=== PATIENT | male | born 2005 | race Asian ===

== ENCOUNTER 2025-06-15 09:05 | Emergency (ER) | payer OTHER, SELFPAY ==
[2025-06-15 09:07] VITALS: BP 152/96
[2025-06-15 11:13] VITALS: BMI 21.1
[2025-06-15 11:19] VITALS: BP 126/77
--- NOTE | 2025-06-15 11:30 | EDRN ---
Patient with c/o intermittent headaches for the past year and the past week he's had one on a daily basis. Denies any visual changes/numbness and tingling. Patient stated that he gets relief when he takes something for it.
--- NOTE | 2025-06-15 12:15 | ED.GENMED ---
History of Present Illness
General
Chief Complaint: Headache
Source: patient
Exam Limitations: none
Time Seen by Provider: 06/15/25 10:56
Nursing documentation reviewed up to this point in time: agreed with
History of Present Illness
History of Present Illness:
19-year-old male presents to the emergency department with father for evaluation of persistent headache X 1 week. Patient states that he has been having a constant headache for the past 7 days. Symptoms are present when he wakes up every morning
however do respond to Advil. He notes that after Advil wears off headache returns. He describes headache as aching pain which is seem to move around his head both on the left and right side. He also states that he has been congested.
He denies any fever, chills, neck pain. He has not had any nausea, vomiting, visual changes, ataxia, or dysarthria. He denies any sore throat or ear pain. No abdominal pain.
Patient denies any recent trauma. He has had no known sick contacts.
Patient does state that he has had a history of headaches however they have never persisted this long or been as severe.
Review of Systems
Review of Systems
Allergies reviewed?: Yes
All Other Systems: ROS reviewed and negative except as documented in HPI and ROS
Phy Exam
Physical Exam
Physical Exam:
Vitals: Patient's vital signs are stable. Afebrile
General: Patient is well appearing, no acute distress. Nontoxic appearing
Skin: Warm and dry, no rashes or lesions
Head: Normocephalic, atraumatic
Eyes: Sclera nonicteric. Pupils equal round and reactive to light bilaterally. EOMs intact. No nystagmus.
Throat: No tonsillar edema or exudates. Uvula midline. No SYSTEM ANALYST protecting airway
Neck: Normal ROM, no cervical spine tenderness, no meningismus
Cardiac: Regular rate and rhythm, no murmurs.
Pulm: Normal respiratory effort, no wheezes, rales, rhonchi heard on exam
.
Abdomen: No abdominal tenderness.
Extremities: No evidence of cyanosis or edema. Strength 5/5 in bilateral upper and lower extremities.
Neuro: AAOx3. CN II-XII grossly intact. No focal neurologic deficits. Normal speech. Normal finger-nose
Psychiatric: Normal affect.
Course
Orders/Labs/Results
Orders:
Orders
06/15/25 12:07
CT Head W/o Iv Contrast Urgent
Comment:
Reason For Exam: headache x 1 week
0.9% Sodium Chloride 1000 ml [Nss] 1,000 ml IV BOLUS
Ketorolac [Toradol] 15 mg IV NOW STA
06/15/25 12:31
COVID-19 Antigen Urgent
Source: Nasal Swab
Complete Blood Count/With Diff Urgent
Comprehensive Metabolic Panel Urgent
Monotest Urgent
Comment: ADD ON
06/15/25 12:56
Add On- LAB Urgent
Tests Added?: monospot
06/15/25 13:02
Acetaminophen [Tylenol] 650 mg PO NOW STA
Abnormal Lab Results
06/15/25
12:31
WBC 4.1 L 10^3/uL
(4.8-10.8)
Neutrophils % 38.4 L %
(42.2-75.2)
Monocytes % 11.1 H %
(1.7-9.3)
BUN 21 H mg/dl
(9-20)
Total Protein 8.5 H g/dl
(6.3-8.2)
Albumin 5.2 H g/dl
(3.5-5.0)
Monoscreen Positive A
(Negative)
06/15/25 12:31
06/15/25 12:31
Vital Signs
Initial and Last Documented VS:
Initial Vital Signs
Temp Pulse Resp BP Pulse Ox
98.5 F 86 16 152/96 99
06/15/25 09:07 06/15/25 09:07 06/15/25 09:07 06/15/25 09:07 06/15/25 09:07
Last Documented Vital Signs
Temp Pulse Resp BP Pulse Ox
98.1 F 69 16 126/78 100
06/15/25 14:28 06/15/25 14:28 06/15/25 14:28 06/15/25 14:28 06/15/25 14:28
MDM/Problems Addressed
Differential Diagnosis Includes:
Not limited to: Viral illness, migraine, tension headache, sinusitis, cluster headache, acute dehydration, intracerebral mass, etc.
MDM/Problems Addressed:
19-year-old male presenting with persistent headache X 1 week and nasal congestion. No other neurologic symptoms. No fever, neck pain, abdominal pain. No known bug bites or rashes. Patient stable on arrival. Physical exam as above. Patient A&O
x 3 without focal neurologic deficits on exam. He has normal strength and normal cerebellar exam. Cardio/pulmonary assessment unremarkable. ENT exam reveals no tonsillar edema or exudates. Differential broad. Given associated nasal
congestion�possible underlying viral illness. Symptoms somewhat inconsistent with migraine headache. Will check labs, viral studies, give IV fluids and Toradol for pain. Overall low suspicion for acute intracranial abnormality however shared
decision making with patient and father�given person and severity of headache will obtain head CT.
Update: Head CT without acute abnormalities. Lab work reveals mild leukopenia indicating possible underlying viral illness. Chemistry unremarkable. Monoscreen is positive. Patient presenting symptoms consistent with acute monoinfection.
Otherwise�workup negative. His symptoms have improved following Toradol and Tylenol. Feel stable for discharge home. Discussed viral in nature and supportive care at home including rest, hydration, NSAIDs for pain. Strict return precautions
discussed. Patient and patient's father comfortable with plan.
Chronic conditions affecting care:
N/A
Acute Exacerbation and/or Progression of Chronic Illness:
N/A
*Radiology
Radiology exam reviewed: radiology read reviewed
*Pulse Oximetry
SaO2: 99
Oxygen Mode of Delivery: Room air
Patient hypoxic: no
*EKG
Interpreted by ED Provider?: NA
*Chemical Process Project Engineer Interpretation
Rate: Chemical Process Project Engineer- N/A
*Critical Care Note
Total Time (30-74mins, 75-104mins- exclusive of procedures): Not Applicable
ED Attending Note
-
Portions of this chart may have been created with voice recognition software.� Occasional wrong word or��sound alike� substitutions may have occurred due to the inherent limitations of voice recognition software.
Discharge Plan
Departure
Patient Disposition: Home (Routine Discharge)
Date of Disposition: 06/15/25
Time of Disposition: 13:55
Patient with high blood pressure during this ER visit?: Yes
Discharge Problem:
Mononucleosis
Instructions: Mononucleosis, Headache, Adult (DC), BLOOD PRESSURE
Referrals:
Abby Atkins MD [Family Provider, Internal Medicine] - Follow up in 5-7 days
Activity Restrictions/Additional Instructions:
RETURN TO THE EMERGENCY DEPARTMENT WITH ANY SEVERE HEADACHE, INTRACTABLE NAUSEA/VOMITING, SORE THROAT/DIFFICULTY SWALLOWING, SHORTNESS OF BREATH, SEVERE ABDOMINAL PAIN, OR ANY OTHER CONCERN
- As discussed�you came to the emergency department today with concerns of a headache. Your labs showed a mildly decreased white blood cell count and your monotest was found to be positive.
- Your head CT showed no acute abnormalities.
- [place] is a virus and should resolve on its own. As discussed�it is important stay well-hydrated, get plenty rest. You can take Tylenol/Motrin at home as needed for pain. [place] can cause an enlargement of the spleen. Please refrain from any
activities/sports that put you at high risk for abdominal trauma.
- Follow-up with your primary care provider for further evaluation and to ensure that your symptoms are improving
Monitor your symptoms closely and return to the emergency department for any acute worsening/new symptoms or any other concerns
Interventions
Interventions:
*Risk Screen - Suicide Last Done: 06/15/25 09:07
*General Assessment Last Done: 06/15/25 11:19
*Neglect/Abuse Screening Last Done: 06/15/25 09:07
*ED- Fall Risk Assessment Last Done: 06/15/25 11:13
*ED COVID-19 Vaccine History Last Done: 06/15/25 11:13
*Nursing Disposition Last Done: 06/15/25 14:28
ED- Neurological Assessment Last Done: 06/15/25 11:13
Discharge Date and Time
Discharge Date/Time: 06/15/25 14:20
Print Language: [place]
[2025-06-15] MEDS: TORADOL 15 MG IV (12:29)
[2025-06-15] MEDS: NSS 1000 IV (12:29)
[2025-06-15 12:35] VITALS: BP 121/83
[2025-06-15 12:40] LABS: Hematocrit 46.0 % (39.0-52.0); Hemoglobin 16.4 g/dL (13.0-18.0); Mean Corp Hgb Conc. 35.7 g/dL (33.0-37.0); Mean Corpuscular Volume 84.7 fL (80.0-94.0); Nucleated Red Blood Cells % 0 % (-); Platelet Count 225 10^3/uL (130-400); Red Cell Dist. Width 11.7 % (11.5-14.5)
[2025-06-15 13:04] LABS: COVID-19 Antigen Negative (Negative)
[2025-06-15 13:07] LABS: ALT (SGPT) 26 U/L (0-50); AST (SGOT) 25 U/L (17-59); Albumin 5.2 g/dl (3.5-5.0); Alkaline Phosphatase 87 U/L (38-126); Blood Urea Nitrogen 21 mg/dl (9-20); Calcium 9.8 mg/dl (8.4-10.2); Carbon Dioxide 27 mmol/L (22-30); Chloride 103 mmol/L (98-107); Estimated Creatinine Clearance > 125 ml/min; Glucose 89 mg/dl (70-99); Potassium 4.4 mmol/L (3.5-5.1); Sodium 138 mmol/L (135-145); Total Protein 8.5 g/dl (6.3-8.2); eGFR > 60.00
[2025-06-15] MEDS: TYLENOL 650 MG PO (13:12)
--- NOTE | 2025-06-15 14:15 | EDRN ---
Reviewed discharge instructions with patient. Verbalized understanding. Ambulated with steady gait to the lobby.
[2025-06-15 14:28] VITALS: BP 126/78
== END 2025-06-15 14:20 | disposition home or self-care (01) ==
LOC: EMR 09:05
PROVIDERS: Physician Assistant; EMERGENCY PHYSICIAN Emergency Medicine; FAMILY PHYSICIAN Internal Medicine Geriatric Medicine
DX: B27.90 Infectious mononucleosis, unspecified without complication (principal); R51.9 Headache, unspecified
CPT/HCPCS: 96374; 96361; 99284; 70450; 80053; 85025; 86308; 87811